=== PATIENT | male | born 1960 | race Caucasian/White ===

== ENCOUNTER 2017-02-11 23:08 | Emergency (ER) | payer MEDICAID ==
[2017-02-11] MEDS ORDERED: Famotidine 20 MG/2 ML SDV IVPUSH ONE (23:37)
[2017-02-11] MEDS ORDERED: Ondansetron 4 MG/2 ML SDV IVPUSH ONE (23:37)
[2017-02-11] MEDS ORDERED: HYDROmorphone 1 MG/ML Syringe IVPUSH ONE (23:37)
--- NOTE | 2017-02-11 23:45 | EDM.PDOC ---
ED HPI GENERAL MEDICAL PROBLEM - General Chief Complaint: Abdominal Pain Stated Complaint: UPPER RIGHT STOMACH PAIN AND BACK PAIN Time Seen by Provider: 02/11/17 23:24 Source of Information: Reports: Patient, RN Notes Reviewed - History of Present Illness INITIAL COMMENTS - FREE TEXT/NARRATIVE: 56-year-old male comes in with upper abdominal pain. This started yesterday, continues today and does seem to be worsening. He describes this as a burning and achy type discomfort upper mid abdomen that does not radiate. He is not had any vomiting or diarrhea. He did eat "Felipe" this past evening a while ago. He does not believe that made the pain better or worse but here he is with more severe discomfort at this time. No fever or chills. Eyes history for peptic ulcer disease or known gallbladder disease. No prior abdominal surgeries. 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 epigastric Pain Score (Numeric/FACES): 3 - Related Data Allergies Allergy/AdvReac Type Severity Reaction Status Date / Time No Known Allergies Allergy Verified 02/11/17 23:29 Home Meds: Home Meds Lisinopril [Prinivil] 10 mg PO DAILY 02/11/17 [History] Hydrocodone/Acetaminophen [Morris 5-325 Tablet] 1 each PO Q6HR PRN #20 tablet [Rx] Ondansetron [Zofran ODT] 4 mg PO Q6H PRN #10 tab.dis 02/12/17 [Rx] Past Medical History HEENT History: Reports: Impaired Vision Cardiovascular History: Reports: Hypertension Respiratory History: Reports: Other (See Below) Other Respiratory History: 2 pack a day smoker Musculoskeletal History: Reports: Other (See Below) Other Musculoskeletal History: broken neck, broken femur, broken foot - Infectious Disease History Infectious Disease History: Reports: Hepatitis C - Past Surgical History HEENT Surgical History: Reports: Tonsillectomy GI Surgical History: Reports: Hernia, Inguinal Social & Family History - Family History Family Medical History: Noncontributory - Tobacco Use Smoking Status *Q: Current Every Day Smoker Years of Tobacco use: 30 Packs/Tins Daily: 2 - Caffeine Use Caffeine Use: Reports: Soda Other Caffeine Use: states "all I drink is mountain dew" - Recreational Drug Use Recreational Drug Use: No ED ROS GENERAL - Review of Systems Review Of Systems: See Below Constitutional: Denies: Fever, Chills, Diaphoresis HEENT: Reports: No Symptoms Respiratory: Denies: Shortness of Breath, Pleuritic Chest Pain Cardiovascular: Denies: Chest Pain GI/Abdominal: Reports: Abdominal Pain. Denies: Constipation, Diarrhea, Nausea ( Upper mid abdomen), Vomiting Musculoskeletal: Reports: Back Pain (Chronic) Skin: Reports: No Symptoms Neurological: Reports: No Symptoms ED EXAM, GI/ABD - Physical Exam Exam: See Below Exam Limited By: No Limitations General Appearance: Alert, Mild Distress Eyes: Bilateral: Normal Appearance Throat/Mouth: Normal Inspection, Normal Oropharynx Head: No: Facial Swelling Neck: Supple, Full Range of Motion Respiratory/Chest: No Respiratory Distress, Lungs Clear, Normal Breath Sounds Cardiovascular: Regular Rate, Rhythm GI/Abdominal Exam: Soft, Tender (Upper mid abdomen, right upper quadrant), Other (Lower abdomen nontender). No: Guarding, Rebound Back Exam: No: CVA Tenderness (L), CVA Tenderness (R) Extremities: Normal Inspection. No: Pedal Edema, Leg Pain Neurological: Alert, Oriented, No Motor/Sensory Deficits Skin Exam: Warm, Dry, Normal Color EKG INTERPRETATION EKG Date: 02/11/17 Rhythm: NSR [place]: Normal P-Wave: Present QRS: Normal ST-T: Normal Course - Vital Signs Last Recorded V/S: Last Vital Signs Temp 97.5 F 02/11/17 23:14 Pulse 79 02/11/17 23:14 Resp 18 02/11/17 23:14 BP 172/103 H 02/11/17 23:14 Pulse Ox 100 02/11/17 23:14 - Orders/Labs/Meds Orders: Active Orders 24 hr Category Date Time Status EKG 12 Lead [EKG Documentation Completion] [RC] STAT Care 02/11/17 23:42 Active Peripheral IV Care [RC] . DIRECTED Care 02/11/17 23:37 Active Abdomen Pelvis w Cont [CT] Stat Exams 02/12/17 01:14 Taken Sodium Chloride 0.9% [Saline Flush] Med 02/11/17 23:37 Active 10 ml FLUSH ASDIRECTED PRN Peripheral IV Insertion Adult [OM.PC] Stat Oth 12/26/17 23:37 Ordered Medication Orders Sodium Chloride (Saline Flush) 10 ml FLUSH ASDIRECTED PRN PRN Reason: Keep Vein Open Last Admin: 02/12/17 01:16 Dose: 10 ml Admin: 02/11/17 23:50 Dose: 10 ml Labs: Laboratory Tests 02/11/17 02/11/17 Range/Units 23:50 23:50 WBC 14.25 H (4.23-9.07) K/mm3 RBC 5.15 (4.63-6.08) M/mm3 Hgb 15.7 (13.7-17.5) gm/L Hct 46.1 (40.1-51.0) % MCV 89.5 (79.0-92.2) fl MCH 30.5 (25.7-32.2) pg MCHC 34.1 (32.2-35.5) g/dl RDW Std Deviation 45.6 H (35.1-43.9) fL Plt Count 200 (163-337) K/mm3 MPV 10.6 (9.4-12.3) fl Neut % (Auto) 74.8 H (34.0-67.9) % Lymph % (Auto) 14.9 L (21.8-53.1) % [place] % (Auto) 7.9 (5.3-12.2) % Eos % (Auto) 1.7 (0.8-7.0) Baso % (Auto) 0.5 (0.1-1.2) % Neut # (Auto) 10.66 H (1.78-5.38) K/mm3 Lymph # (Auto) 2.13 (1.32-3.57) K/mm3 [place] # (Auto) 1.12 H (0.30-0.82) K/mm3 Eos # (Auto) 0.24 (0.04-0.54) K/mm3 Baso # (Auto) 0.07 (0.01-0.08) K/mm3 Sodium 138 (136-145) mEq/L Potassium 3.9 (3.5-5.1) mEq/L Chloride 104 (98-107) mEq/L Carbon Dioxide 24 (21-32) mEq/L Anion Gap 13.9 (5-15) BUN 19 H (7-18) mg/dL Creatinine 0.9 (0.7-1.3) mg/dL Est Cr Clr Drug Dosing 102.99 mL/min Estimated GFR (MDRD) > 60 (>60) mL/min BUN/Creatinine Ratio 21.1 H (14-18) Glucose 110 H (74-106) mg/dL Calcium 9.1 (8.5-10.1) mg/dL Total Bilirubin 0.4 (0.2-1.0) mg/dL AST 30 (15-37) U/L ALT 41 (16-63) U/L Alkaline Phosphatase 49 (46-116) U/L Total Protein 7.7 (6.4-8.2) g/dl Albumin 3.7 (3.4-5.0) g/dl Globulin 4.0 gm/dL Albumin/Globulin Ratio 0.9 L (1-2) Lipase 1943 H (73-393) U/L Meds: Medications Generic Name Dose Route Start Last Admin Trade Name Freq PRN Reason Stop Dose Admin Sodium Chloride 10 ml 02/11/17 23:37 02/12/17 01:16 Saline Flush FLUSH 10 ml ASDIRECTED PRN Administration Keep Vein Open Discontinued Medications Generic Name Dose Route Start Last Admin Trade Name Freq PRN Reason Stop Dose Admin Diatrizoate Meglum/Diatrizoate Sod 90 ml 02/12/17 02:25 02/12/17 02:36 Gastrografin 37% PO 02/12/17 02:26 90 ml ONETIME ONE Administration Famotidine 20 mg 02/11/17 23:37 02/11/17 23:50 Pepcid IVPUSH 02/11/17 23:38 20 mg ONETIME ONE Administration Hydromorphone HCl 0.5 mg 02/11/17 23:37 02/11/17 23:50 Dilaudid IVPUSH 02/11/17 23:38 0.5 mg ONETIME ONE Administration Hydromorphone HCl 0.5 mg 02/12/17 01:14 02/12/17 01:19 Dilaudid IVPUSH 02/12/17 01:15 0.5 mg ONETIME ONE Administration Hydromorphone HCl 0.5 mg 02/12/17 03:48 Dilaudid IVPUSH 02/12/17 03:49 ONETIME ONE Sodium Chloride 500 mls @ 999 mls/hr 02/12/17 01:08 02/12/17 01:16 Normal Saline IV 02/12/17 01:38 999 mls/hr .BOLUS ONE Administration Iopamidol 125 ml 02/12/17 02:25 02/12/17 02:36 Isovue-300 (61%) IVPUSH 02/12/17 02:26 125 ml ONETIME ONE Administration Ondansetron HCl 4 mg 02/11/17 23:37 02/11/17 23:50 Zofran IVPUSH 02/11/17 23:38 4 mg ONETIME ONE Administration - Re-Assessments/Exams Free Text/Narrative Re-Assessment/Exam: 02/12/17 01:06. Lipase came back elevated at 1943, white blood count mildly elevated, other labs all relatively normal. will check CT of abdomen and pelvis with oral and IV contrast. 02/12/17 03:45. CT of abdomen does show evidence for pancreatitis as expected, no abscess or pseudocyst visible. See radiologist report for details. No evidence for gallbladder disease or ductal dilatation. Patient feels tremendously better after some IV Zofran, Pepcid and 0.5 mg Dilaudid 2 over the past 4 hours. He does feel up to going home at this time. Discharge instructions as documented. Departure - Departure Time of Disposition: 03:48 Disposition: Home, Self-Care 01 Condition: Fair Clinical Impression: Pancreatitis Qualifiers: Chronicity: acute Pancreatitis type: unspecified pancreatitis type Acute pancreatitis complication: unspecified Qualified Code(s): K85.90 - Acute pancreatitis without necrosis or infection, unspecified - Discharge Information Prescriptions: Hydrocodone/Acetaminophen [Morris 5-325 Tablet] 1 each PO Q6HR PRN #20 tablet PRN Reason: Pain Ondansetron [Zofran ODT] 4 mg PO Q6H PRN #10 tab.dis PRN Reason: Nausea/Vomiting Referrals: PCP,None [Primary Care Provider] - Forms: ED Department Discharge Additional Instructions: Clear liquids and careful bland diet as tolerated, Zofran if needed for nausea or vomiting, Pepcid or famotidine available [id number] recommended once or twice daily to help reduce stomach acidity, Tylenol for mild to moderate discomfort or hydrocodone if needed for more severe pain. See Dr. Smith or Dr. Escalera at our [facility] tomorrow or Friday for follow-up or otherwise first available appointment next week. Call [phone] for appt. Return to ED as needed if symptoms worsening in any way. - My Orders Last 24 Hours: My Active Orders 02/11/17 23:37 Peripheral IV Care [RC] . DIRECTED Sodium Chloride 0.9% [Saline Flush] 10 ml FLUSH ASDIRECTED PRN Peripheral IV Insertion Adult [OM.PC] Stat 02/11/17 23:42 EKG 12 Lead [EKG Documentation Completion] [RC] STAT 02/12/17 01:14 Abdomen Pelvis w Cont [CT] Stat - Assessment/Plan Last 24 Hours: My Active Orders 02/11/17 23:37 Peripheral IV Care [RC] . DIRECTED Sodium Chloride 0.9% [Saline Flush] 10 ml FLUSH ASDIRECTED PRN Peripheral IV Insertion Adult [OM.PC] Stat 02/11/17 23:42 EKG 12 Lead [EKG Documentation Completion] [RC] STAT 02/12/17 01:14 Abdomen Pelvis w Cont [CT] Stat
[2017-02-11] MEDS: Sodium Chloride 0.9% 10 ML Syringe FLUSH PRN (23:50)
[2017-02-12] MEDS ORDERED: Sodium Chloride 0.9% 500 ML IV ONE (01:08)
[2017-02-12] MEDS ORDERED: HYDROmorphone 0.5 MG/0.5 ML Syringe IVPUSH ONE ×2 (01:14→03:48)
[2017-02-12] MEDS: Sodium Chloride 0.9% 10 ML Syringe FLUSH PRN (01:16)
[2017-02-12] MEDS ORDERED: Iopamidol 612 MG/ML 150 ML Bottle IVPUSH ONE (02:25)
[2017-02-12] MEDS ORDERED: Diatrizoate Meglumine/Diatrizoate Sodium 37% 120 ML Bottle PO ONE (02:25)
--- NOTE | 2017-02-12 11:35 | CT ---
CT abdomen and pelvis Technique: Multiple axial sections were obtained from above the dome of the diaphragm inferiorly through the pubic symphysis. Delayed images were also obtained through the pelvis. Intravenous and oral contrast has been given. Comparison: No prior study. Findings: Visualized lung bases show nothing acute. Liver shows mild fatty infiltration without focal abnormality. Spleen appears within normal limits. Nodule within the splenic hilum compatible with accessory splenic tissue. Adrenal glands show no nodule. Cysts are identified within both kidneys. Largest cyst measures approximately 3.2 cm. Inflammatory change seen around the head of the pancreas compatible with pancreatitis. No free fluid is seen. Aorta shows atherosclerotic change without aneurysmal dilatation. Appendix is seen which is normal. No pelvic mass or adenopathy is seen. Equivocal thickening of the urinary bladder wall is noted which is likely incidental. Diverticuli seen within sigmoid colon without diverticulitis. No bowel dilatation is seen. Slight increased stool seen within the colon. Delayed images show contrast within the distal ureters and bladder. Bone window settings were reviewed showing mild diffuse degenerative change throughout the spine. Impression: 1. Findings compatible with pancreatitis within the pancreatic head. 2. Mild fatty infiltration within the liver. 3. Other incidental findings. Diagnostic code #3 I agree with preliminary report issued by [employer] ([facility] report finalized on 02/12/17, 4:05 AM Central Time)
== END 2017-02-12 04:00 | disposition home or self-care (01) ==
LOC: JD.ED 23:08
DX: K85.90 Acute pancreatitis without necrosis or infection, unspecified (principal); F17.210 Nicotine dependence, cigarettes, uncomplicated; I10 Essential (primary) hypertension; Z79.899 Other long term (current) drug therapy
CPT/HCPCS: 36415; 74177; 80053; 83690; 85025; 93005; 96361; 96374; 96375; 96376; 99285; J1170; J2405; J7040; J7050; Q9963; Q9967; 93010; 99284

== ENCOUNTER 2017-04-29 12:45 | Emergency (ER) | payer MEDICAID ==
--- NOTE | 2017-04-29 13:31 | EDM.PDOC ---
ED HPI GENERAL MEDICAL PROBLEM - General Chief Complaint: Cardiovascular Problem Stated Complaint: HANDS AND FEET COLD FEET BLUE CHEST PRESSURE Time Seen by Provider: 04/29/17 13:06 Source of Information: Reports: Patient History Limitations: Reports: No Limitations - History of Present Illness INITIAL COMMENTS - FREE TEXT/NARRATIVE: Patient is a 56-year-old male presents ED complaining of his feet and hands becoming very cold. Patient states after sexual intercourse with his his feet were purplish in color with some paresthesias present. Patient states after sexual intercourse he went sat in a recliner with his feet up when his noticed the discoloration of his feet and toes. Symptoms have resolved with admission to the ED. Denies at any point of bending his legs for extended periods of time. He has a history of cold hands and feet. He has never been diagnosed with Raynauds disease. Patient has long history of smoking. 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 He' s cut down to one pack per day. He has no history of peripheral vascular disease and denies any claudication or unhealed wounds to his feet. He is not a diabetic. He does have a history of pancreatitis years back and continues to have some chest pressure to the lower sternal region 4 out of 10 unchanged for the past 2 years. As of recent denies any increasing or decrease of symptoms. He also has a history of GERD and is on omeprazole. He has EGD and colonoscopy scheduled for tomorrow. At times he does experience shortness of breath with also productive/nonproductive cough. He is concerned he is having issues with his heart. He's never had a stress test before. Has at times experience some warm hot and cold flashes at night while sleeping. Denies any recent weight loss or history of cancer. Chest Pain Score (Numeric/FACES): 5 - Related Data Allergies Allergy/AdvReac Type Severity Reaction Status Date / Time No Known Allergies Allergy Verified 04/29/17 12:55 Home Meds: Home Meds ALPRAZolam [Alprazolam] 0.5 - 1 tab PO BEDTIME 04/29/17 [History] Hydrocodone/Acetaminophen [[place] 5-325 Tablet] 1 each PO Q4H PRN 04/29/17 [ History] Lisinopril [Lisinopril] 20 mg PO DAILY 04/29/17 [History] Lisinopril/Hydrochlorothiazide [Lisinopril-Hctz 20-12.5 mg Tab] 1 tab PO QAM [History] Omeprazole [Omeprazole] 40 mg PO DAILY 04/29/17 [History] Past Medical History HEENT History: Reports: Impaired Vision, Sinusitis Cardiovascular History: Reports: Hypertension Respiratory History: Reports: Other (See Below) Other Respiratory History: 2 pack a day smoker Gastrointestinal History: Reports: Hepatitis, Pancreatitis, Other (See Below) Other Gastrointestinal History: abdominal pain, constipation Genitourinary History: Reports: None CANDLE POURER History: Reports: None Musculoskeletal History: Reports: Arthritis, Other (See Below) Other Musculoskeletal History: broken neck, broken femur, broken foot Psychiatric History: Reports: Anxiety, Other (See Below) Other Psychiatric History: insomnia Endocrine/Metabolic History: Reports: None Hematologic History: Reports: None Immunologic History: Reports: None Oncologic (Cancer) History: Reports: None Dermatologic History: Reports: None - Infectious Disease History Infectious Disease History: Reports: Hepatitis C - Past Surgical History Head Surgeries/Procedures: Reports: None HEENT Surgical History: Reports: Tonsillectomy Cardiovascular Surgical History: Reports: None Respiratory Surgical History: Reports: None GI Surgical History: Reports: Hernia, Inguinal Male Surgical History: Reports: None Endocrine Surgical History: Reports: None Neurological Surgical History: Reports: Other (See Below) Other Neurological Surgeries/Procedures: low back surgery x2, neck surgery x 2 Musculoskeletal Surgical History: Reports: Other (See Below) Other Musculoskeletal Surgeries/Procedures:: femur fracture, foot surgery, knee surgery Oncologic Surgical History: Reports: None Dermatological Surgical History: Reports: None Social & Family History - Family History Family Medical History: Noncontributory - Tobacco Use Smoking Status *Q: Current Every Day Smoker Years of Tobacco use: 40 Packs/Tins Daily: 1.5 - Caffeine Use Caffeine Use: Reports: Soda Other Caffeine Use: states "all I drink is mountain dew" - Recreational Drug Use Recreational Drug Use: Yes Drug Use in Last 12 Months: Yes Recreational Drug Type: Reports: Marijuana/Hashish ED ROS GENERAL - Review of Systems Review Of Systems: ROS reveals no pertinent complaints other than HPI. ED EXAM, GENERAL - Physical Exam Exam: See Below Exam Limited By: No Limitations General Appearance: Alert, WD/WN, No Apparent Distress Ears: Hearing Grossly Normal Nose: Normal Inspection Throat/Mouth: Normal Voice, No Airway Compromise Head: Atraumatic, Normocephalic Neck: Normal Inspection, Supple Respiratory/Chest: No Respiratory Distress, Lungs Clear, Normal Breath Sounds, No Accessory Muscle Use, Chest Non-Tender Cardiovascular: Normal Peripheral Pulses, Regular Rate, Rhythm, No Murmur Peripheral Pulses: 3+: Posterior Tibial (L), Posterior Tibial (R), 4+: Radial (L ), Radial (R) GI/Abdominal: Normal Bowel Sounds, Soft, Non-Tender, No Organomegaly, No Distention Extremities: Normal Inspection, Normal Range of Motion, Non-Tender, No Pedal Edema, Normal Capillary Refill Neurological: Alert, Oriented, CN II-XII Intact, Normal Cognition, No Motor/ Sensory Deficits Psychiatric: Normal Affect, Normal Mood Skin Exam: Warm, Dry, Intact, Normal Color Course - Vital Signs Last Recorded V/S: Last Vital Signs Temp 97.8 F 04/29/17 12:57 Pulse 63 04/29/17 12:57 Resp 16 04/29/17 14:58 BP 140/94 H 04/29/17 14:58 Pulse Ox 99 04/29/17 14:58 - Orders/Labs/Meds Orders: Active Orders 24 hr Category Date Time Status Cardiac Monitoring [RC] . DIRECTED Care 04/29/17 13:25 Active EKG 12 Lead [EKG Documentation Completion] [RC] STAT Care 04/29/17 12:50 Active Labs: Laboratory Tests 04/29/17 04/29/17 04/29/17 Range/Units 13:43 13:43 13:43 WBC 11.93 H (4.23-9.07) K/mm3 RBC 5.44 (4.63-6.08) M/mm3 Hgb 16.1 (13.7-17.5) gm/L Hct 48.6 (40.1-51.0) % MCV 89.3 (79.0-92.2) fl MCH 29.6 (25.7-32.2) pg MCHC 33.1 (32.2-35.5) g/dl RDW Std Deviation 49.5 H (35.1-43.9) fL Plt Count 207 (163-337) K/mm3 MPV 10.7 (9.4-12.3) fl Neut % (Auto) 71.2 H (34.0-67.9) % Lymph % (Auto) 17.9 L (21.8-53.1) % [place] % (Auto) 7.3 (5.3-12.2) % Eos % (Auto) 2.3 (0.8-7.0) Baso % (Auto) 0.8 (0.1-1.2) % Neut # (Auto) 8.49 H (1.78-5.38) K/mm3 Lymph # (Auto) 2.14 (1.32-3.57) K/mm3 [place] # (Auto) 0.87 H (0.30-0.82) K/mm3 Eos # (Auto) 0.28 (0.04-0.54) K/mm3 Baso # (Auto) 0.09 H (0.01-0.08) K/mm3 Sodium 139 (136-145) mEq/L Potassium 4.5 (3.5-5.1) mEq/L Chloride 101 (98-107) mEq/L Carbon Dioxide 30 (21-32) mEq/L Anion Gap 12.5 (5-15) BUN 17 (7-18) mg/dL Creatinine 1.1 (0.7-1.3) mg/dL Est Cr Clr Drug Dosing 84.26 mL/min Estimated GFR (MDRD) > 60 (>60) mL/min BUN/Creatinine Ratio 15.5 (14-18) Glucose 100 (74-106) mg/dL Calcium 9.5 (8.5-10.1) mg/dL Total Bilirubin 0.7 (0.2-1.0) mg/dL AST 31 (15-37) U/L ALT 48 (16-63) U/L Alkaline Phosphatase 48 (46-116) U/L Troponin I < 0.017 (0.00-0.056) ng/mL C-Reactive Protein < 0.2 (<1.0) mg/dL Total Protein 8.2 (6.4-8.2) g/dl Albumin 3.9 (3.4-5.0) g/dl Globulin 4.3 gm/dL Albumin/Globulin Ratio 0.9 L (1-2) Lipase 192 (73-393) U/L TSH 3rd Generation 1.016 (0.358-3.74) uIU/mL - Re-Assessments/Exams Free Text/Narrative Re-Assessment/Exam: Patient with evaluation in ED has no acute symptoms.Discolorization to his feet and paresthesias have resolved with admission to the ED. He has a history of pancreatitis and states that he has chronic chest pressure rated a 4 out of 10 for the past 2 years. Nothing new as of recent periods chronic issue. No worsening or decrease in symptoms noted. He is concerned this is related to his heart. I am likely. He may have some form of peripheral vascular disease with this history of heavy smoking and poor diet. He denies any claudication at this point. No unhealed sores. No paresthesias with admission to the ED. Again this discolorization has resolved. He has EGD and colonoscopy scheduled for tomorrow. He also has a history of GERD and is on PPI. Patient is wishing to have some basic labs to ensure not related to his heart. Initial lab studies will include CBC, chem 14, CRP, lipase, troponin, and abdominal series with chest x-ray. EKG shows sinus rhythm at a rate of 63 with normal QTC. No acute ST changes noted. 04/29/17 13:48 Reviewed ultrasound abdomen limited dated April 03, 2017 impression: Right-sided renal cyst. No additional abnormality is identified on right upper quadrant abdominal ultrasound. Reviewed CT the abdomen and pelvis dated February 122016 impression: Findings compatible with pancreatitis within the pancreatic head. Mild fatty infiltration within the liver. Other incidental findings. CXR/Abdominal series impression: nothing acute identified. Labs reviewed: CMP essentially normal. Lipase 192. TSH 1.016. Troponin less than 0.017. CBC essentially normal. X-ray of the abdomen/chest: no acute findings noted. Patients symptoms have been chronic. Unclear etilogy of upper abdominal pressure/lower chest. Worsened with smoking. Has EGD and colonoscopy scheduled for tomorrow. In relation to the cold discolored feet/toes after sexual intercourse. Diagnosis unclear at this point. patient has history of discolored hands with cold exposure maybe associated with raynauds disease. Patient has not had a cardiac stress test. He has multiple risk factors thus will place order for outpatient stress test. Patient will see PCP in the next week for reevaluation. Outpatient ordered for Cardiac Stress Test ordered. Return precautions discussed with patient. He has no questions or concerns. Departure - Departure Time of Disposition: 15:05 Disposition: Home, Self-Care 01 Condition: Good Clinical Impression: Chest pressure, Abdominal pressure, Discolored skin Instructions: Nonspecific Chest Pain Referrals: Silvia Breaux [Primary Care Provider] - Forms: ED Department Discharge Additional Instructions: As discussed unclear etiology at this point why you had discolorization to your feet after sexual intercourse. This maybe related to raynauds with history of similar discoloration to hands and persistent cold finger/hands/toes/ feet. No treatment at this point. In addition chest/abdominal pressure is chronic with no new or worsening symptoms. Discomfort is not related to pancreatitis. You mentioned increased with smoking but I cannot clarify reason. Thus keep appt with General Surgeon for tomorrow to have EGD/Colonoscopy. Discuss with him recent E.D. visit. Due to concern of heart disease with multiple riskfactors will order outpatient exercise stress test. See pcp for results. See pcp the end of this week or first part of next week for reevaluation. Refrain from smoking. Return to the E.D. for any new or worsening symptoms. - My Orders Last 24 Hours: My Active Orders 04/29/17 12:50 EKG 12 Lead [EKG Documentation Completion] [RC] STAT 04/29/17 13:25 Cardiac Monitoring [RC] . DIRECTED - Assessment/Plan Last 24 Hours: My Active Orders 04/29/17 12:50 EKG 12 Lead [EKG Documentation Completion] [RC] STAT 04/29/17 13:25 Cardiac Monitoring [RC] . DIRECTED
--- NOTE | 2017-04-29 14:35 | CR ---
Abdominal series: Frontal view of the chest was obtained as well as supine and upright views of the abdomen. Comparison: No prior abdominal or chest x-rays. Heart size is normal. Tortuous thoracic aorta is seen. Previous lower cervical and upper thoracic surgery is noted. Lungs are clear with no acute parenchymal densities. Bowel gas pattern appears normal. Orthopedic hardware is partially visualized within the right hip. Calcifications are seen within the pelvis compatible phleboliths. No soft tissue abnormality is seen. Impression: 1. Incidental findings. Nothing acute is appreciated. Diagnostic code #2
== END 2017-04-29 15:35 | disposition home or self-care (01) ==
LOC: JD.ED 12:45
DX: L98.8 Other specified disorders of the skin and subcutaneous tissue (principal); R07.89 Other chest pain; R10.9 Unspecified abdominal pain; G89.29 Other chronic pain; K21.9 Gastro-esophageal reflux disease without esophagitis; I10 Essential (primary) hypertension; F17.210 Nicotine dependence, cigarettes, uncomplicated; Z79.899 Other long term (current) drug therapy
CPT/HCPCS: 36415; 74022; 74022-26; 80053; 83690; 84443; 84484; 85025; 86140; 93005; 99284; 99285-25